=== PATIENT | female | born 1970 | race Caucasian/White ===

== ENCOUNTER 2018-07-27 04:55 | Outpatient (CLI) | payer BC ==
[2018-07-27 10:32] LABS: #Basophils 0.1 thou/uL (0.0-0.2); #Eosinphils 0.1 thou/uL (0.0-0.7); #Lymphocytes 2.3 thou/uL (1.20-3.40); #Monocytes 0.6 thou/uL (0.11-0.59); #Neutrophils 3.9 thou/uL (1.40-6.50); %Basophils 1.1 % (0.0-1.0); %Eosinophils 1.6 % (0.0-10.0); %Lymphocytes 32.7 % (21.0-51.0); %Monocytes 8.6 % (0.0-10.0); Mean Corpuscular HGB CONC 34.2 g/dL (32.0-36.0); Mean Corpuscular Hemoglobin 33.9 pg (27.0-31.0); Mean Platelet Volume 6.7 fL (7.4-10.4); Platelet Count 278 thou/uL (130-400); RBC Distribution Width 11.5 % (11.5-14.5); Red Blood Cell (RBC) Count 3.83 mill/uL (4.20-5.40)
== END 2018-07-27 04:56 | disposition home or self-care (01) ==
LOC: LABBT 04:55
PROVIDERS: ATTEND Surgery
DX: Z01.818 Encounter for other preprocedural examination (principal); K42.9 Umbilical hernia without obstruction or gangrene
CPT/HCPCS: 85025; 93005; 93010

== ENCOUNTER 2018-07-30 06:00 | Day surgery (SDC) | payer BC ==
[2018-07-27 09:52] VITALS: BMI 19.9
[2018-07-30] MEDS ORDERED: Fentanyl 100 MCG/2 ML VIAL ONE (06:27)
[2018-07-30] MEDS ORDERED: Bupivacaine/Epinephrine 0.25% 30 ML VIAL ONE (06:59)
[2018-07-30] MEDS ORDERED: Midazolam HCl 2 mg/2 ml Vial ONE (07:27)
[2018-07-30] MEDS ORDERED: HYDROcodone/Acetaminophen 5/325 mg Tablet ONE (09:47)
[2018-07-30] MEDS ORDERED: PROPOFOL 200 MG/20 ML VIAL ONE (10:41)
[2018-07-30] MEDS ORDERED: Ondansetron PF 4 MG/2 ML Vial ONE (10:41)
[2018-07-30] MEDS ORDERED: Glycopyrrolate 0.2 MG/ML 5 ML SYRINGE ONE (10:41)
[2018-07-30] MEDS ORDERED: Lidocaine 1% PF 5 ML VIAL ONE (10:41)
[2018-07-30] MEDS ORDERED: Dexamethasone 20 MG/5 ML VIAL ONE (10:41)
[2018-07-30] MEDS ORDERED: Ketorolac Tromethamine 30 MG/ML VIAL ONE (10:41)
--- NOTE | 2018-07-30 12:58 | OP ---
DATE OF PROCEDURE: 07/30/2018 PREOPERATIVE DIAGNOSIS: Umbilical hernia. PROCEDURE PERFORMED: Umbilical hernia repair with mesh. INDICATIONS: The patient is a 48-year-old female, who has an enlarging painful umbilical hernia. FINDINGS: 1.5 cm defect, 6.4 cm Proceed mesh used. DESCRIPTION OF PROCEDURE: After informed consent was obtained, the patient was taken the operating room and given general mask anesthesia, placed in the supine position. Abdomen was prepped and draped in usual fashion. Local anesthesia infiltrated subcutaneously and deep. A subumbilical incision was performed. Subcu divided sharply. The hernia sac was dissected from skin anteriorly and then from surrounding subcutaneous tissue circumferentially down to the fascia. The hernia sac excised. It measured approximately 1.5 cm in diameter. It was fully reducible. A 6.4 cm Proceed mesh was inserted after it was hydrated, spread out, and then the wings were sutured to the abdominal wall with interrupted 0 Ethibond and the mesh further secured with 0 Ethibond to the fascia, both inferior and superior. Hemostasis assured with electrocautery. The skin was then sutured to the abdominal wall with interrupted 3-0 Vicryl to restore the umbilical contour and then, the skin was closed with interrupted 4-0 Vicryl. Steri-Strips applied. Sterile bandage applied. The patient tolerated the procedure well, transferred to Recovery in good condition. Sponge and needle count verified correct x2. Job ID: [id number]
== END 2018-07-30 10:45 | disposition home or self-care (01) ==
LOC: SDC 06:00
PROVIDERS: ATTEND Surgery
PROC: 0WUF0JZ Supplement Abdominal Wall with Synthetic Substitute, Open Approach (ICD-10-PCS; principal; 2018-07-30)
DX: K42.9 Umbilical hernia without obstruction or gangrene (principal); Z87.891 Personal history of nicotine dependence; Z79.899 Other long term (current) drug therapy; Z88.8 Allergy status to other drugs, medicaments and biological substances
CPT/HCPCS: J2250; J3010